=== PATIENT | female | born 1985 | race Caucasian/White ===

== ENCOUNTER 2024-04-27 08:27 | Emergency (ER) | payer BC, SELFPAY ==
[2024-04-27 08:31] VITALS: BP 137/90; PULSE 73; TEMP 36.6; O2SAT 100; BMI 30.8
[2024-04-27 08:58] LABS: Bilirubin Urine NEGATIVE (NEGATIVE); Blood Urine LARGE (NEGATIVE); Clarity Urine CLEAR (CLEAR); Color Urine YELLOW (YELLOW); Glucose Urine UA NEGATIVE (NEGATIVE); Ketones Urine NEGATIVE (NEGATIVE); Leukocyte Esterase Urine NEGATIVE (NEGATIVE); Nitrite Urine NEGATIVE (NEGATIVE); Protein Urine NEGATIVE (NEG/TRACE); Specific Gravity Urine >=1.030 (1.005-1.025); Urobilinogen Urine 0.2 EU/dL (0.2-1.0)
[2024-04-27 09:02] LABS: Basophils Absolute Auto 0.1 10^3/uL (0.0-0.1); Basophils Percent Auto 0.8 % (0.2-2.0); Eosinophils Absolute Auto 0.1 10^3/uL (0.0-0.7); Eosinophils Percent Auto 0.9 % (0.9-7.0); Hematocrit 44.3 % (36.0-48.0); Hemoglobin 15.1 g/dL (12.0-16.0); Immature Granulocytes Abs Auto 0.04 10^3/uL (0.00-0.03); Immature Granulocytes Pct Auto 0.4 % (0.0-0.5); Lymphocytes Absolute Auto 3.5 10^3/uL (1.2-3.8); Lymphocytes Percent Auto 33.9 % (20.5-60.0); Mean Corpuscular HGB Conc 34.1 g/dL (29.9-35.2); Mean Corpuscular Hemoglobin 31.8 pg (26.7-34.0); Mean Corpuscular Volume 93.3 fL (81.0-99.0); Mean Platelet Volume 9.8 fL (9.5-13.5); Monocytes Absolute Auto 0.6 10^3/uL (0.3-0.8); Monocytes Percent Auto 6.3 % (1.7-12.0); Neutrophils Absolute Auto 5.9 10^3/uL (1.4-6.5); Neutrophils Percent Auto 57.7 % (43.0-75.0); Platelet Count 297 10^3/uL (150-450); Red Blood Count 4.75 10^6/uL (4.20-5.40); Red Cell Distribution Width 12.1 % (11.0-15.0); White Blood Count 10.2 10^3/uL (4.0-11.0)
[2024-04-27 09:02] LABS: Urine Microscopic Indicated YES
[2024-04-27 09:17] LABS: Bacteria Urine TRACE #/HPF (NONE SEEN); Cast Seen? NONE SEEN #/LPF (NONE SEEN); Crystals Seen? None Seen #/HPF (None Seen); Mucus Urine TRACE (NONE SEEN); Squamous Epithelial Cell Urine FEW #/LPF (NONE/RARE); Urine Culture Indicated NO; WBC Urine 0-2 #/HPF (NONE SEEN)
[2024-04-27 09:22] LABS: HCG Qualitative NEGATIVE (NEGATIVE); Internal Control Within Normal Limits
[2024-04-27] MEDS: KETOROLAC TROMETHAMINE 30 MG/ML VIAL 15 MG IVP (09:22)
[2024-04-27 09:26] LABS: Alanine Aminotransferase 22 U/L (14-59); Albumin Globulin Ratio 1.3; Albumin Level 3.8 g/dL (3.4-5.0); Alkaline Phosphatase 61 U/L (46-116); Anion Gap 16.3; Aspartate Amino Transferase 10 U/L (15-37); BUN Creatinine Ratio 13.5; Bilirubin Total 0.3 mg/dL (0.2-1.0); Calcium 9.2 mg/dL (8.5-10.1); Carbon Dioxide 20.5 mmol/L (21.0-32.0); Chloride 108 mmol/L (98-107); Estimated GFR (African America >60 (>=60); Estimated GFR (Non-African Ame 59 (>=60); Globulin 2.9 g/dL; Glucose 113 mg/dL (74-106); Potassium 3.8 mmol/L (3.5-5.1); Sodium 141 mmol/L (136-145); Total Protein 6.7 g/dL (6.4-8.2)
--- NOTE | 2024-04-27 09:36 | CT_ITS ---
[address] [address] Patient Name: BRIGITTE DELEON MRN: [id number] date: 1985 Sex: F Assigned Patient Location: ER Current Patient Location: Accession/Order Number: [id number] Exam Date: 04/27/2024 09:47 Report Date: 04/27/2024 10:07 At the request of: KEVIN WILLIAM Procedure: CT abdomen pelvis wo con EXAMINATION: CT abdomen pelvis wo con HISTORY: left flank pain COMPARISON: No relevant comparison available. TECHNIQUE: Axial, Coronal, and Sagittal images were obtained without and/or with IV contrast as indicated by examination type. Dose reduction techniques were achieved by using automated exposure control and/or adjustment of mA and/or kV according to patient size and/or use of iterative reconstruction technique. FINDINGS: LUNG BASES: No visible pulmonary or pleural disease. LIVER: No enlargement, atrophy, suspicious density, or significant focal lesion. BILIARY: No dilatation or calcification. PANCREAS: No lesion, fluid collection, or abnormal duct dilatation. SPLEEN: No enlargement or focal lesion. ADRENALS: No mass or enlargement. KIDNEYS: 3.4 cm right renal cyst favoring benign etiology. Mild left hydronephrosis and hydroureter without appreciable stones or mass. BOWEL/MESENTERY: No visible mass, obstruction, or bowel wall thickening. AORTA/VASCULAR: No aneurysm or dissection. RETROPERITONEUM: No mass or adenopathy. LYMPH NODES: No adenopathy. URINARY BLADDER: Completely empty. No visible focal wall thickening, lesion, or calculus. PELVIC ORGANS: No visible mass. Pelvic organs appropriate for patient age. ABDOMINAL WALL: No mass or hernia. BONES: No bony lesion or fracture. OTHER: Negative. CT/CT abdomen pelvis wo con IMPRESSION: 1. Mild left hydroureter and hydronephrosis without appreciable stone within the ureter or empty urinary bladder. Recent passage of a stone? 2. Otherwise unremarkable abdomen and pelvis. Electronically authenticated by: SARAH HENDERSON Date: 04/27/2024 10:07
[2024-04-27] MEDS: ONDANSETRON PF 4 MG/2 ML VIAL IV (09:42)
--- NOTE | 2024-04-27 10:20 | ED.ABDPAIN1 ---
HPI - Abdominal Pain General Chief Complaint: Abdominal Pain Stated Complaint: ABDOMINAL/PELVIC PAIN Time Seen by Provider: 04/27/24 08:36 Source: patient Mode of arrival: walk-in Limitations: no limitations History of Present Illness HPI narrative: The patient is coming to us with a left-sided lower abdominal pain radiating to her left flank area, that she started having almost within the last hour, not associated with any nausea vomiting or any other concerns, no changes in bowel movement The patient have no fever or chills but she mentioned that her urine did look dark and she also mentioned that she have a history of kidney stone Related Data Home Medications ?Medication ?Instructions ?Recorded ?Confirmed alprazolam 0.5 mg tablet 0.5 mg PO TID PRN anxiety 04/27/24 04/27/24 dicyclomine 20 mg tablet 20 mg PO TID 04/27/24 04/27/24 gabapentin 100 mg capsule 100 mg PO TID 04/27/24 04/27/24 galcanezumab-gnlm 120 mg/mL 120 mg subcut .monthly 04/27/24 04/27/24 subcutaneous pen injector (Emgality Pen) ondansetron HCl 4 mg tablet 8 mg PO Q6H PRN nausea and vomiting 04/27/24 04/27/24 paroxetine HCl 30 mg tablet 40 mg PO DAILY 04/27/24 04/27/24 propranolol 40 mg tablet 40 mg PO .QHS 04/27/24 04/27/24 topiramate 100 mg tablet 100 mg PO .QHS 04/27/24 04/27/24 trazodone 50 mg tablet 50 mg PO .QHS 04/27/24 04/27/24 ubrogepant 100 mg tablet (Ubrelvy) 100 mg PO DAILY PRN migraine 04/27/24 04/27/24 headache Previous Rx's ?Medication ?Instructions ?Recorded cephalexin 500 mg capsule 500 mg PO Q8H 7 days #21 caps 04/27/24 diclofenac sodium 50 mg 50 mg PO Q12H PRN pain #10 tabs 04/27/24 tablet,delayed release Allergies Allergy/AdvReac Type Severity Reaction Status Date / Time No Known Drug Allergies Allergy Verified 04/27/24 08:35 Review of Systems ROS Status of ROS 10 or more systems reviewed and unremarkable except as noted in history and below Exam Narrative Exam Narrative: Nurses notes and vital signs reviewed and patient is not hypoxic. General: Well-appearing and in no apparent distress. Skin: Warm, dry, no pallor noted. No rash. Head: Normocephalic, atraumatic. Neck: Supple, non-tender. Eye: Pupils are equal, round and EOMI. No scleral icterus. Ears, Nose, Mouth, and Throat: TM are clear, no nasal mucosal hypertrophy. Oral mucosa is moist, no posterior oropharynx erythema, uvula is mid-line Cardiovascular: Regular Rate and Rhythm without murmur, gallop or rub. Respiratory: No accessory muscle use or respiratory distress. Lungs are clear to auscultation, no wheezing, rales or rhonchi Chest Wall: no tenderness Back: No midline thoracic or lumbar vertebral tenderness. Left flank CVA tenderness Musculoskeletal: normal ROM, no calf or popliteal tenderness, no lower extremity edema/swelling GI: Abdomen is soft, non-distended. Normal bowel sounds. No masses appreciated. No tenderness to palpation. No rebound, guarding, or rigidity noted. Neurological: A&O x4. No cranial nerve dysfunction observed. No truncal ataxia. Moves all extremities. Sensation intact. Psychiatric: Cooperative and interactive. Normal mood and affect. Constitutional Vital Signs, click to edit/add: Last Vital Signs Temp 97.9 F 04/27/24 08:31 Pulse 73 04/27/24 08:31 Resp 16 04/27/24 08:31 BP 137/90 04/27/24 08:31 Pulse Ox 100 04/27/24 08:31 O2 Del Method Room Air 04/27/24 08:31 Course Vital Signs Vital signs: Vital Signs Temperature 97.9 F 04/27/24 08:31 Pulse Rate 73 04/27/24 08:31 Respiratory Rate 16 04/27/24 08:31 Blood Pressure 137/90 04/27/24 08:31 Pulse Oximetry 100 04/27/24 08:31 Oxygen Delivery Method Room Air 04/27/24 08:31 Temperature 97.9 F 04/27/24 08:31 Pulse Rate 73 04/27/24 08:31 Respiratory Rate 16 04/27/24 08:31 Blood Pressure 137/90 04/27/24 08:31 Pulse Oximetry 100 04/27/24 08:31 Oxygen Delivery Method Room Air 04/27/24 08:31 MDM - Abdominal Pain MDM Narrative Medical decision making narrative: The patient CBC and chemistry showed no acute significant pathology Urine shows multiple RBCs and her test is negative Patient CAT scan shows hydronephrosis with the possibility of passing kidney stone within normal kidney function the patient will just continue supportive care Patient also covered with Keflex due to the multiple bacteria in the urine and prophylaxis coverage with her symptoms The patient is to follow up with primary care physician in next 2-3 days or to return to the emergency department should any of the signs or symptoms worsen or new symptoms develop. The patient agrees with the following Diagnosis and Treatment plan and the patient will be discharged home. Lab Data Labs: Lab Results 04/27/24 04/27/24 Range/Units 08:38 08:56 WBC 10.2 (4.0-11.0) 10^3/uL RBC 4.75 (4.20-5.40) 10^6/uL Hgb 15.1 (12.0-16.0) g/dL Hct 44.3 (36.0-48.0) % MCV 93.3 (81.0-99.0) fL MCH 31.8 (26.7-34.0) pg MCHC 34.1 (29.9-35.2) g/dL RDW 12.1 (11.0-15.0) % Plt Count 297 (150-450) 10^3/uL MPV 9.8 (9.5-13.5) fL Neut % (Auto) 57.7 (43.0-75.0) % Lymph % (Auto) 33.9 (20.5-60.0) % [place] % (Auto) 6.3 (1.7-12.0) % Eos % (Auto) 0.9 (0.9-7.0) % Baso % (Auto) 0.8 (0.2-2.0) % Neut # (Auto) 5.9 (1.4-6.5) 10^3/uL Lymph # (Auto) 3.5 (1.2-3.8) 10^3/uL [place] # (Auto) 0.6 (0.3-0.8) 10^3/uL Eos # (Auto) 0.1 (0.0-0.7) 10^3/uL Baso # (Auto) 0.1 (0.0-0.1) 10^3/uL Abs Immat Gran (auto) 0.04 H (0.00-0.03) 10^3/uL Imm/Tot Granulo (auto) 0.4 (0.0-0.5) % Sodium 141 (136-145) mmol/L Potassium 3.8 (3.5-5.1) mmol/L Chloride 108 H (98-107) mmol/L Carbon Dioxide 20.5 L (21.0-32.0) mmol/L Anion Gap 16.3 BUN 14.0 (7.0-18.0) mg/dL Creatinine 1.04 H (0.55-1.02) mg/dL Est GFR ( Amer) >60 (>=60) Est GFR (Non-Af Amer) 59 L (>=60) BUN/Creatinine Ratio 13.5 Glucose 113 H (74-106) mg/dL Calcium 9.2 (8.5-10.1) mg/dL Total Bilirubin 0.3 (0.2-1.0) mg/dL AST 10 L (15-37) U/L ALT 22 (14-59) U/L Alkaline Phosphatase 61 (46-116) U/L Total Protein 6.7 (6.4-8.2) g/dL Albumin 3.8 (3.4-5.0) g/dL Globulin 2.9 g/dL Albumin/Globulin Ratio 1.3 Serum HCG, Qual Negative (NEGATIVE) Urine Color Yellow (YELLOW) Urine Clarity Clear (CLEAR) Urine pH 6.0 (5.0-9.0) Ur Specific [place] >=1.030 A (1.005-1.025) Urine Protein Negative (NEG/TRACE) mg/dL Urine Glucose (UA) Negative (NEGATIVE) mg/dL Urine Ketones Negative (NEGATIVE) mg/dL Urine Occult Blood Large A (NEGATIVE) Urine Nitrite Negative (NEGATIVE) Urine Bilirubin Negative (NEGATIVE) Urine Urobilinogen 0.2 (0.2-1.0) EU/dL Ur Leukocyte Esterase Negative (NEGATIVE) Urine RBC 10-20 A (0-2) #/HPF Urine WBC 0-2 A (NONE SEEN) #/HPF Ur Squamous Epith Cells Few A (NONE/RARE) #/LPF Urine Crystals None seen (None Seen) #/HPF Urine Bacteria Trace A (NONE SEEN) #/HPF Urine Casts None seen (NONE SEEN) #/LPF Urine Mucus Trace A (NONE SEEN) Ur Culture Indicated? No Discharge Plan Discharge Stand Alone Forms: Portal Instructions Chief Complaint: Abdominal Pain Clinical Impression: Calculus of kidney Patient Disposition: Home, Self-Care Time of Disposition Decision: 10:18 Condition: Good Prescriptions / Home Meds: New cephalexin 500 mg capsule 500 mg PO Q8H 7 Days Qty: 21 0RF diclofenac sodium 50 mg tablet,delayed release (DR/EC) 50 mg PO Q12H PRN (Reason: pain ) Qty: 10 0RF No Action alprazolam 0.5 mg tablet 0.5 mg PO TID PRN (Reason: anxiety) dicyclomine 20 mg tablet 20 mg PO TID gabapentin 100 mg capsule 100 mg PO TID Emgality Pen 120 mg/mL pen injector 120 mg SUBCUT .monthly ondansetron HCl 4 mg tablet 8 mg PO Q6H PRN (Reason: nausea and vomiting) paroxetine HCl 30 mg tablet 40 mg PO DAILY propranolol 40 mg tablet 40 mg PO .QHS topiramate 100 mg tablet 100 mg PO .QHS trazodone 50 mg tablet 50 mg PO .QHS Ubrelvy 100 mg tablet 100 mg PO DAILY PRN (Reason: migraine headache) Print Language: Slovenian Instructions: Kidney Stones (ED), Hydronephrosis (ED) Referrals: Physician,Non-Staff, MD [Primary Care Provider] - 1 week
== END 2024-04-27 10:31 | disposition home or self-care (01) ==
PROVIDERS: Emergency Provider Emergency Medicine
DX: N20.0 Calculus of kidney (principal)
CPT/HCPCS: 36415; 74176; 80053; 81001; 84703; 85025; 96374; 96375; 99284; J1885; J2405